=== PATIENT | female | born 1940 | race Caucasian/White ===

== ENCOUNTER → 2016-12-05 | Outpatient (CLI) | payer MEDICARE, OTHER | END | disposition home or self-care (01) | LOC: CFH 08:19 | PROVIDERS: ATTEND Nurse Practitioner Family | DX: Z13.820 Encounter for screening for osteoporosis (principal); M81.0 Age-related osteoporosis without current pathological fracture; M85.80 Other specified disorders of bone density and structure, unspecified site | CPT/HCPCS: 77080 ==

== ENCOUNTER → 2016-12-20 | Outpatient (CLI) | payer OTHER | END | disposition home or self-care (01) | LOC: CFH 10:16 | PROVIDERS: ATTEND Nurse Practitioner Family | DX: R31.9 Hematuria, unspecified (principal); Z90.6 Acquired absence of other parts of urinary tract | CPT/HCPCS: 76770 ==

== ENCOUNTER → 2018-03-27 | Outpatient (CLI) | payer OTHER | END | disposition home or self-care (01) | LOC: CFH 10:41 | PROVIDERS: ATTEND Surgery | DX: I65.23 Occlusion and stenosis of bilateral carotid arteries (principal); I73.9 Peripheral vascular disease, unspecified; Z88.8 Allergy status to other drugs, medicaments and biological substances | CPT/HCPCS: 93880 ==

== ENCOUNTER → 2018-07-10 | Outpatient (CLI) | payer OTHER | END | disposition home or self-care (01) | LOC: CFH 09:43 | PROVIDERS: ATTEND Nurse Practitioner Family | DX: I65.23 Occlusion and stenosis of bilateral carotid arteries (principal) | CPT/HCPCS: 70551; 93880 ==

== ENCOUNTER 2019-03-27 06:54 | Inpatient (IN) | payer MEDICARE ==
[~2019-03-27] VITALS: Ht 160 cm; Wt 45.4 kg
[2019-04-02 15:40] VITALS: BP 101/63
== END 2019-04-02 20:02 | DRG 208 ==
LOC: ED 09:38 → EDIP 09:44 → CCU 11:13 → 5SO 03-29 15:49
PROVIDERS: ADMIT Hospitalist; ATTEND Hospitalist
PROC: 0T9B70Z Drainage of Bladder with Drainage Device, Via Natural or Artificial Opening (ICD-10-PCS; principal; 2019-03-27)
PROC: 5A1935Z Respiratory Ventilation, Less than 24 Consecutive Hours (ICD-10-PCS; 2019-03-27)
PROC: 0BH17EZ Insertion of Endotracheal Airway into Trachea, Via Natural or Artificial Opening (ICD-10-PCS; 2019-03-27)
DX: J96.01 Acute respiratory failure with hypoxia (principal); G92 Toxic encephalopathy; I50.43 Acute on chronic combined systolic (congestive) and diastolic (congestive) heart failure; E87.2 Acidosis; N39.0 Urinary tract infection, site not specified; I42.9 Cardiomyopathy, unspecified; I11.0 Hypertensive heart disease with heart failure; J96.02 Acute respiratory failure with hypercapnia; Z88.8 Allergy status to other drugs, medicaments and biological substances; E03.9 Hypothyroidism, unspecified; E78.5 Hyperlipidemia, unspecified; E87.8 Other disorders of electrolyte and fluid balance, not elsewhere classified; F17.200 Nicotine dependence, unspecified, uncomplicated; G89.4 Chronic pain syndrome; J43.9 Emphysema, unspecified; Z79.891 Long term (current) use of opiate analgesic; Z85.3 Personal history of malignant neoplasm of breast; Z90.710 Acquired absence of both cervix and uterus; E11.42 Type 2 diabetes mellitus with diabetic polyneuropathy
CPT/HCPCS: 31500; 36415; 36600; 70450; 71045; 78452; 80048; 80053; 80061; 80307; 81001; 82010; 82140; 82550; 82803; 82947; 82962; 83036; 83605; 83735; 83930; 84100; 84145; 84439; 84443; 84478; 84484; 85025; 85610; 85730; 86850; 86900; 87040; 87070; 87081; 87086; 87107; 87205; 93005; 93017; 93306; 94002; 94640; 96361; 96365; 96375; 96376; 99291; G0378; J0696; J1650; J2250; J2310; J2543; J2704; J2785; J3370; J7620; J7626; A9502; C9898; J0330; J1815; J1940; J2920; J3475; J7030; J7040; J7050

== ENCOUNTER 2019-09-11 21:10 | Inpatient (IN) | payer MEDICARE ==
[~2019-09-11] VITALS: Ht 160 cm; Wt 58.8 kg
[~2019-09-11 21:10] MED LIST: AMIT50TA PO; ASPI-515 PO; ATOR40TA78 PO; AZIT500T PO; CEFD300C37 PO; CHOL200074 PO; ENOX40SY4 SQ; FLUT1BLS12 INH; FURO20TA3 PO; GABA-826 PO; GABA-827 PO; GUAI600T31 PO; HYDR-3245 PO; HYDR20TA PO; INSU100I13 SQ-INSULIN; LEVO100T5 PO; LIPA1CAP61 PO; LISI-170 PO; LISI5TAB7 PO; METF500T17 PO; METO50TA82 PO; MULT1TAB57 PO; NICO-486 TD; PANT40TA5 PO; POLY17PO5 PO; POTA20TA91 PO; SIMV5TAB14 PO; TAMS-11 PO; TRAM50TA2 PO; [UNRECOGNIZED DRUG - OTHER]
[2019-09-11] MEDS ORDERED: MORPHINE SULFATE 4 MG/ML, 1ML IVPush PRN (21:30)
[2019-09-11] MEDS ORDERED: SODIUM CHLORIDE FLUSH 10ML SYR IVF ONE (21:30)
[2019-09-11] MEDS ORDERED: ONDANSETRON 2MG/ML, 2ML IVPush ONE (21:30)
[2019-09-11] MEDS ORDERED: ONDANSETRON 2MG/ML, 2ML ONE (22:03)
[2019-09-11] MEDS ORDERED: MORPHINE SULFATE 4 MG/ML, 1ML ONE (22:03)
[2019-09-11 22:05] LABS: MEAN CORPUSCULAR HEMOGLOBIN 32.1 pg (27.0-34.8); MEAN CORPUSCULAR HGB CONC 32.1 g/dL (32.4-35.8); MEAN PLATELET VOLUME 7.7 fL (7.4-10.4); PLATELET COUNT 519 x10^3/uL (130-400); RED BLOOD COUNT 4.41 x10^6/uL (3.82-5.3); RED CELL DISTRIBUTION WIDTH 15.1 % (9.6-15.2)
[2019-09-11 22:15] LABS: INTERNATIONAL NORMALIZED RATIO 1.13 (0.93-1.1)
[2019-09-11 22:17] LABS: ALANINE AMINOTRANSFERASE 24 U/L (12-78); ALBUMIN 2.2 g/dL (3.4-5.0); ANION GAP 8 mmol/L (5-15); BASOPHILS # (AUTO) 0.07 x10^3/uL (0-0.1); BASOPHILS % (AUTO) 0 % (0-1); CALCIUM 7.9 mg/dL (8.5-10.1); CHLORIDE 103 mmol/L (98-107); CREATININE 0.56 mg/dL (0.55-1.02); EOSINOPHILS # (AUTO) 0.03 x10^3/uL (0-0.4); EOSINOPHILS % (AUTO) 0 % (1-7); LYMPHOCYTES % (AUTO) 5 % (22-44); MD SCAN; MONOCYTES # (AUTO) 1.11 x10^3/uL (0.2-0.8); MONOCYTES % (AUTO) 6 % (2-9); NEUTROPHILS # (AUTO) 17.93 x10^3/uL (1.8-6.8); NEUTROPHILS % (AUTO) 89 % (42-75)
[2019-09-11 22:20] LABS: ALKALINE PHOSPHATASE 334 U/L (45-117); BILIRUBIN,TOTAL 0.4 mg/dL (0.2-1.0); TOTAL PROTEIN 5.6 g/dL (6.4-8.2)
[2019-09-11] MEDS ORDERED: CEFTRIAXONE PMX 1GM/50ML 50 ML IVPB ONE (22:30)
[2019-09-11] MEDS ORDERED: AZITHROMYCIN 500 MG in SODIUM CHLORIDE 0.9% 250 ML IV ONE (23:00)
--- NOTE | 2019-09-11 23:00 | NUR ---
PT RESTING COMFORTABLY. MONITOR IN PLACE.
[2019-09-11 23:10] LABS: TROPONIN I < 0.015 ng/mL (0.000-0.045)
[2019-09-11] MEDS ORDERED: CEFTRIAXONE PMX 1GM/50ML 50 ML ONE (23:16)
--- NOTE | 2019-09-11 23:30 | NUR ---
UA OBTAINED VIA STRAIGHT CATH. PT'S SON IN . PT TOLERATED WELL.
[2019-09-11 23:56] LABS: MICROSCOPIC INDICATED
[2019-09-12 00:11] LABS: CULTURE INDICATED? YES
[2019-09-12] MEDS ORDERED: ACETAMINOPHEN 325 MG TABLET PO PRN (00:30)
[2019-09-12] MEDS ORDERED: ONDANSETRON ODT 4 MG PO PRN (00:30)
[2019-09-12] MEDS ORDERED: DOCUSATE 100 MG CAPSULE PO PRN (00:30)
[2019-09-12 00:38] VITALS: BP 107/63
[2019-09-12] MEDS: AZITHROMYCIN 500 MG in SODIUM CHLORIDE 0.9% 250 ML IV SCH (03:03)
[2019-09-12] MEDS: HYDROcodone/APAP 5/325 TABLET PO PRN ×3 (06:34→16:51)
[2019-09-12 06:40] VITALS: BP 101/65
[2019-09-12] MEDS: POLYETHYLENE GLYCOL 17 GM PACKET PO SCH (09:09)
[2019-09-12] MEDS: CEFTRIAXONE PMX 1GM/50ML 50 ML IV SCH ×2 (09:09→19:54)
[2019-09-12] MEDS ORDERED: LIDOCAINE 4% CREAM 15GM TUBE TP PRN (11:00)
[2019-09-12 13:28] VITALS: BP 98/54
[2019-09-12] MEDS: ENOXAPARIN 40 MG/0.4 ML SQ SCH (14:10)
[2019-09-12 17:02] VITALS: BP 166/75
[2019-09-12] MEDS: METOPROLOL TARTRATE 50 MG TABLET PO SCH (17:45)
[2019-09-12 19:39] VITALS: BP 88/60
[2019-09-13] VITALS (9 sets, daily range): BP systolic 72–111; BP diastolic 41–74
[2019-09-13] MEDS: HYDROcodone/APAP 5/325 TABLET PO PRN ×2 (00:48→09:34)
[2019-09-13] MEDS: AZITHROMYCIN 500 MG in SODIUM CHLORIDE 0.9% 250 ML IV SCH (01:24)
[2019-09-13 04:48] LABS: BASOPHILS # (AUTO) 0.04 x10^3/uL (0-0.1); BASOPHILS % (AUTO) 0 % (0-1); EOSINOPHILS # (AUTO) 0.03 x10^3/uL (0-0.4); EOSINOPHILS % (AUTO) 0 % (1-7); LYMPHOCYTES # (AUTO) 1.81 x10^3/uL (1-3.4); LYMPHOCYTES % (AUTO) 13 % (22-44); MD NO; MEAN CORPUSCULAR HGB CONC 32.4 g/dL (32.4-35.8); MEAN CORPUSCULAR VOLUME 98.9 fL (80-100); MEAN PLATELET VOLUME 7.9 fL (7.4-10.4); MONOCYTES # (AUTO) 0.95 x10^3/uL (0.2-0.8); MONOCYTES % (AUTO) 7 % (2-9); NEUTROPHILS # (AUTO) 11.63 x10^3/uL (1.8-6.8); NEUTROPHILS % (AUTO) 80 % (42-75); PLATELET COUNT 383 x10^3/uL (130-400); RED BLOOD COUNT 3.92 x10^6/uL (3.82-5.3); RED CELL DISTRIBUTION WIDTH 15.3 % (9.6-15.2)
[2019-09-13 04:51] LABS: ANION GAP 5 mmol/L (5-15); CALCIUM 7.4 mg/dL (8.5-10.1); CHLORIDE 104 mmol/L (98-107); CREATININE 0.48 mg/dL (0.55-1.02)
[2019-09-13] MEDS: METOPROLOL TARTRATE 50 MG TABLET PO SCH ×2 (06:13→17:15)
[2019-09-13] MEDS: CEFTRIAXONE PMX 1GM/50ML 50 ML IV SCH ×2 (08:36→21:20)
[2019-09-13] MEDS: POLYETHYLENE GLYCOL 17 GM PACKET PO SCH (08:58)
[2019-09-13] MEDS ORDERED: MAGNESIUM SULFATE 6 GM in SODIUM CHLORIDE 0.9% 150 ML IV ONE (09:00)
[2019-09-13] MEDS: ENOXAPARIN 40 MG/0.4 ML SQ SCH (12:13)
[2019-09-13] MEDS: INSULIN LISPRO 100 UNITS/ML, PEN SQ-INSULIN SCH ×3 (12:14→20:34)
[2019-09-13] MEDS ORDERED: SODIUM CHLORIDE 0.9%, 250ML IVBOLUS ONE (13:30)
[2019-09-13] MEDS ORDERED: POTASSIUM PHOSPHATE 44 MEQ in SODIUM CHLORIDE 0.9% 500 ML IV ONE (15:00)
[2019-09-13] MEDS: SODIUM CHLORIDE 0.9% 1,000 ML IV SCH (16:34)
[2019-09-13] MEDS ORDERED: METOPROLOL TARTRATE 50 MG TABLET PO SCH (18:00)
[2019-09-14 02:03] VITALS: BP 95/64
[2019-09-14] MEDS: HYDROcodone/APAP 5/325 TABLET PO PRN ×3 (02:47→20:35)
[2019-09-14 05:08] LABS: BASOPHILS # (AUTO) 0.05 x10^3/uL (0-0.1); BASOPHILS % (AUTO) 0 % (0-1); EOSINOPHILS # (AUTO) 0.07 x10^3/uL (0-0.4); EOSINOPHILS % (AUTO) 1 % (1-7); LYMPHOCYTES # (AUTO) 1.63 x10^3/uL (1-3.4); LYMPHOCYTES % (AUTO) 12 % (22-44); MD NO; MEAN CORPUSCULAR HEMOGLOBIN 31.8 pg (27.0-34.8); MEAN CORPUSCULAR HGB CONC 32.2 g/dL (32.4-35.8); MEAN CORPUSCULAR VOLUME 98.5 fL (80-100); MEAN PLATELET VOLUME 8.2 fL (7.4-10.4); MONOCYTES # (AUTO) 1.12 x10^3/uL (0.2-0.8); MONOCYTES % (AUTO) 8 % (2-9); NEUTROPHILS # (AUTO) 10.79 x10^3/uL (1.8-6.8); NEUTROPHILS % (AUTO) 79 % (42-75); PLATELET COUNT 351 x10^3/uL (130-400); RED CELL DISTRIBUTION WIDTH 15.3 % (9.6-15.2)
[2019-09-14 05:18] LABS: ALBUMIN 1.5 g/dL (3.4-5.0); ANION GAP 6 mmol/L (5-15); CALCIUM 7.1 mg/dL (8.5-10.1); CHLORIDE 105 mmol/L (98-107)
[2019-09-14 05:21] LABS: ALANINE AMINOTRANSFERASE 24 U/L (12-78); ALKALINE PHOSPHATASE 243 U/L (45-117); BILIRUBIN,TOTAL 0.2 mg/dL (0.2-1.0); CREATININE 0.33 mg/dL (0.55-1.02); TOTAL PROTEIN 4.4 g/dL (6.4-8.2)
[2019-09-14] MEDS: METOPROLOL TARTRATE 50 MG TABLET PO SCH ×2 (05:48→17:36)
[2019-09-14] MEDS: SODIUM CHLORIDE 0.9% 1,000 ML IV SCH ×2 (05:49→15:35)
[2019-09-14 06:47] VITALS: BP 92/63
[2019-09-14] MEDS: INSULIN LISPRO 100 UNITS/ML, PEN SQ-INSULIN SCH ×4 (08:49→20:34)
[2019-09-14] MEDS: POLYETHYLENE GLYCOL 17 GM PACKET PO SCH (09:06)
[2019-09-14] MEDS: CEFTRIAXONE PMX 1GM/50ML 50 ML IV SCH (09:06)
[2019-09-14] MEDS: ENOXAPARIN 40 MG/0.4 ML SQ SCH (12:18)
[2019-09-14 14:03] VITALS: BP 83/53
[2019-09-14 14:08] VITALS: BP 91/60
[2019-09-14] MEDS: ERTAPENEM 1 GM in SODIUM CHLORIDE 0.9% 50 ML IV SCH (15:32)
[2019-09-14 17:40] VITALS: BP 97/62
[2019-09-14 19:17] VITALS: BP 94/52
[2019-09-15 01:06] VITALS: BP 97/55
[2019-09-15 04:56] LABS: ANION GAP 4 mmol/L (5-15); CALCIUM 7.9 mg/dL (8.5-10.1); CHLORIDE 106 mmol/L (98-107)
[2019-09-15 04:57] LABS: CREATININE 0.34 mg/dL (0.55-1.02); MEAN CORPUSCULAR HGB CONC 32.2 g/dL (32.4-35.8); MEAN CORPUSCULAR VOLUME 99.5 fL (80-100); MEAN PLATELET VOLUME 8.8 fL (7.4-10.4); PLATELET COUNT 391 x10^3/uL (130-400); RED BLOOD COUNT 4.33 x10^6/uL (3.82-5.3); RED CELL DISTRIBUTION WIDTH 15.2 % (9.6-15.2)
[2019-09-15 06:00] LABS: BASOPHILS # (AUTO) 0.07 x10^3/uL (0-0.1); BASOPHILS % (AUTO) 0 % (0-1); EOSINOPHILS # (AUTO) 0.19 x10^3/uL (0-0.4); EOSINOPHILS % (AUTO) 1 % (1-7); LYMPHOCYTES # (AUTO) 1.72 x10^3/uL (1-3.4); LYMPHOCYTES % (AUTO) 11 % (22-44); MD SCAN; MONOCYTES # (AUTO) 1.45 x10^3/uL (0.2-0.8); MONOCYTES % (AUTO) 9 % (2-9); NEUTROPHILS # (AUTO) 12.65 x10^3/uL (1.8-6.8); NEUTROPHILS % (AUTO) 79 % (42-75)
[2019-09-15] MEDS: METOPROLOL TARTRATE 50 MG TABLET PO SCH ×2 (06:04→18:15)
[2019-09-15] MEDS: SODIUM CHLORIDE 0.9% 1,000 ML IV SCH ×2 (06:06→20:44)
[2019-09-15 06:24] VITALS: BP 112/68
[2019-09-15] MEDS: INSULIN LISPRO 100 UNITS/ML, PEN SQ-INSULIN SCH ×4 (07:00→20:44)
[2019-09-15] MEDS: POLYETHYLENE GLYCOL 17 GM PACKET PO SCH (08:39)
[2019-09-15] MEDS ORDERED: METO50TA82 PO (10:37)
[2019-09-15] MEDS ORDERED: ONDA4TAB13 PO (10:37)
[2019-09-15] MEDS ORDERED: GLIP5TAB10 PO (10:37)
[2019-09-15] MEDS ORDERED: TRAM50TA2 PO (10:37)
[2019-09-15] MEDS ORDERED: ERTA1VIA IV (10:37)
[2019-09-15] MEDS ORDERED: HYDR-3622 PO (11:01)
[2019-09-15 12:08] VITALS: BP 103/72
[2019-09-15] MEDS: ENOXAPARIN 40 MG/0.4 ML SQ SCH (12:21)
[2019-09-15] MEDS: ERTAPENEM 1 GM in SODIUM CHLORIDE 0.9% 50 ML IV SCH (15:01)
[2019-09-15] MEDS: HYDROcodone/APAP 5/325 TABLET PO PRN ×2 (15:01→21:51)
[2019-09-15 19:21] VITALS: BP 115/72
[2019-09-16] VITALS (7 sets, daily range): BP systolic 93–120; BP diastolic 57–80
[2019-09-16] MEDS: METOPROLOL TARTRATE 50 MG TABLET PO SCH ×2 (06:12→17:32)
[2019-09-16] MEDS: INSULIN LISPRO 100 UNITS/ML, PEN SQ-INSULIN SCH ×4 (07:00→20:51)
[2019-09-16] MEDS: POLYETHYLENE GLYCOL 17 GM PACKET PO SCH (08:33)
[2019-09-16] MEDS: HYDROcodone/APAP 5/325 TABLET PO PRN ×2 (10:05→20:51)
[2019-09-16] MEDS: ENOXAPARIN 40 MG/0.4 ML SQ SCH (11:10)
[2019-09-16] MEDS: ERTAPENEM 1 GM in SODIUM CHLORIDE 0.9% 50 ML IV SCH (15:33)
[2019-09-16] MEDS: SODIUM CHLORIDE 0.9% 1,000 ML IV SCH (20:50)
[2019-09-17 02:02] VITALS: BP 127/77
[2019-09-17] MEDS: HYDROcodone/APAP 5/325 TABLET PO PRN ×2 (03:42→11:08)
[2019-09-17] MEDS: METOPROLOL TARTRATE 50 MG TABLET PO SCH ×2 (05:37→17:08)
[2019-09-17] MEDS: INSULIN LISPRO 100 UNITS/ML, PEN SQ-INSULIN SCH ×3 (07:00→16:10)
[2019-09-17 08:17] VITALS: BP 115/76
[2019-09-17] MEDS: POLYETHYLENE GLYCOL 17 GM PACKET PO SCH (08:49)
[2019-09-17] MEDS: SODIUM CHLORIDE 0.9% 1,000 ML IV SCH (10:03)
[2019-09-17] MEDS: ENOXAPARIN 40 MG/0.4 ML SQ SCH (11:08)
[2019-09-17 13:14] VITALS: BP 101/71
[2019-09-17] MEDS: ERTAPENEM 1 GM in SODIUM CHLORIDE 0.9% 50 ML IV SCH (15:00)
== END 2019-09-17 18:00 | DRG 871 ==
LOC: ED 23:18 → EDIP 23:47 → 4WST 23:53
PROVIDERS: ADMIT Family Medicine; ATTEND Internal Medicine
PROC: 0T9B70Z Drainage of Bladder with Drainage Device, Via Natural or Artificial Opening (ICD-10-PCS; 2019-09-11)
PROC: 02HV33Z Insertion of Infusion Device into Superior Vena Cava, Percutaneous Approach (ICD-10-PCS; principal; 2019-09-15)
PROC: B5181ZA Fluoroscopy of Superior Vena Cava using Low Osmolar Contrast, Guidance (ICD-10-PCS; 2019-09-15)
PROC: B548ZZA Ultrasonography of Superior Vena Cava, Guidance (ICD-10-PCS; 2019-09-15)
DX: A41.51 Sepsis due to Escherichia coli [E. coli] (principal); S72.144A Nondisplaced intertrochanteric fracture of right femur, initial encounter for closed fracture; E43 Unspecified severe protein-calorie malnutrition; J15.9 Unspecified bacterial pneumonia; S32.601A Unspecified fracture of right ischium, initial encounter for closed fracture; J44.0 Chronic obstructive pulmonary disease with (acute) lower respiratory infection; N39.0 Urinary tract infection, site not specified; I50.42 Chronic combined systolic (congestive) and diastolic (congestive) heart failure; J96.11 Chronic respiratory failure with hypoxia; K86.1 Other chronic pancreatitis; Z16.12 Extended spectrum beta lactamase (ESBL) resistance; Z88.8 Allergy status to other drugs, medicaments and biological substances; Z68.23 Body mass index [BMI] 23.0-23.9, adult; E03.9 Hypothyroidism, unspecified; E11.9 Type 2 diabetes mellitus without complications; E83.42 Hypomagnesemia; F17.210 Nicotine dependence, cigarettes, uncomplicated; G89.4 Chronic pain syndrome; I11.0 Hypertensive heart disease with heart failure; I70.0 Atherosclerosis of aorta; K59.09 Other constipation; M16.11 Unilateral primary osteoarthritis, right hip; W18.11XA Fall from or off toilet without subsequent striking against object, initial encounter; Y93.89 Activity, other specified; Y92.091 Bathroom in other non-institutional residence as the place of occurrence of the external cause; Y99.8 Other external cause status; Z75.1 Person awaiting admission to adequate facility elsewhere; Z82.49 Family history of ischemic heart disease and other diseases of the circulatory system; Z90.710 Acquired absence of both cervix and uterus; Z96.651 Presence of right artificial knee joint; M81.0 Age-related osteoporosis without current pathological fracture
CPT/HCPCS: 36415; 36573; 70450; 71045; 72125; 72192; 73523; 80048; 80053; 81001; 82962; 83036; 83605; 83735; 83880; 84100; 84145; 84484; 85025; 85610; 85730; 87040; 87077; 87086; 87184; 87186; 93005; 96365; 96375; G0378; J0456; J0696; J1335; J1650; J2405; J3475; Q0162; C1751; J1815; J2270; J7030; J7040; J7050

== ENCOUNTER 2019-10-09 20:46 | Inpatient (IN) | payer MEDICARE ==
[~2019-10-09] VITALS: Ht 160 cm; Wt 53.3 kg
[~2019-10-09 20:46] MED LIST changes: +ERTA1VIA IV; +GLIP5TAB10 PO; +HYDR-3622 PO; +ONDA4TAB13 PO
--- NOTE | 2019-10-09 21:13 | NUR ---
[facility] SEALS FROM [facility] FOR [facility] CP TODAY. PT REPORTS CP INCREASES WITH DEEP BREATH. WET COUGH NOTED. CRACKLES IN LLL. PT RECENTLY DX WITH ILEUS, AND PLACED ON LIQUID DIET. PT VERY CACHECTIC. DECUB ULCER NOTED ON SACRUM. WAFFLE MATTRESS PLACED UNDER PT. PILLOW BENEATH LEGS FOR RT HIP COMFORT. PT REHABILITATING RT HIP FX AT FACILITY. PT ALSO NOTED TO HAVE DISTENDED ABDOMEN, WHICH PT IS UNSURE WHETHER IT'S NORMAL FOR HER OR HAS COME ON GRADUALLY AND BEEN LARGELY UNNOTICED. PT AOX3, UNSURE OF DATE. LAB AT BEDSIDE FOR DRAW. SIDE RAIL UP, CALL LIGHT IN REACH.
[2019-10-09 21:18] LABS: MICROSCOPIC NOT IND
[2019-10-09 21:21] LABS: CULTURE INDICATED? NO
[2019-10-09] MEDS ORDERED: SODIUM CHLORIDE 0.9% 1,000ML IVBOLUS ONE ×2 (21:30→23:00)
--- NOTE | 2019-10-09 21:32 | NUR ---
PT TOLERATED MINI CATH WELL. STERILE TECHNIQUE MAINTAINED THROUGH PROCEDURE.
[2019-10-09 21:47] LABS: MEAN CORPUSCULAR HEMOGLOBIN 31.4 pg (27.0-34.8); MEAN CORPUSCULAR HGB CONC 32.8 g/dL (32.4-35.8); MEAN CORPUSCULAR VOLUME 95.7 fL (80-100); MEAN PLATELET VOLUME 8.4 fL (7.4-10.4); PLATELET COUNT 399 x10^3/uL (130-400); RED CELL DISTRIBUTION WIDTH 14.9 % (9.6-15.2)
[2019-10-09 21:58] LABS: INTERNATIONAL NORMALIZED RATIO 1.38 (0.93-1.1); PROTHROMBIN TIME 14.7 Seconds (9.6-11.5)
[2019-10-09 22:00] LABS: ALANINE AMINOTRANSFERASE 19 U/L (12-78); ANION GAP 9 mmol/L (5-15); CALCIUM 8.1 mg/dL (8.5-10.1); CHLORIDE 105 mmol/L (98-107); CREATININE 1.03 mg/dL (0.55-1.02)
[2019-10-09] MEDS ORDERED: PIPERACILLIN/TAZO/PMX 3.375GM 50 ML IV ONE (22:00)
[2019-10-09] MEDS ORDERED: PLEASE ENTER HEIGHT AND WEIGHT MC SCH (22:00)
[2019-10-09 22:02] LABS: BILIRUBIN,TOTAL 0.4 mg/dL (0.2-1.0)
[2019-10-09 22:03] LABS: TOTAL PROTEIN 5.9 g/dL (6.4-8.2)
[2019-10-09 22:05] LABS: ALKALINE PHOSPHATASE 162 U/L (45-117); TROPONIN I < 0.015 ng/mL (0.000-0.045)
[2019-10-09 22:08] LABS: MD YES
[2019-10-09 22:11] LABS: BANDS%(MANUAL) 5 % (0-7); EOS#(MANUAL) 0.24 x10^3/uL (0.0-0.4); EOS% (MANUAL) 2 % (1-7); LYMPH#(MANUAL) 2.52 x10^3/uL (1-3.4); LYMPHS% (MANUAL) 21 % (22-44); MONOS#(MANUAL) 1.56 x10^3/uL (0.3-2.7); MONOS% (MANUAL) 13 % (2-9); SEG#(MANUAL) 7.08 x10^3/uL (1.8-6.8); SEGS% (MANUAL) 59 % (42-75)
[2019-10-09 22:12] LABS: <RBC MORPHOLOGY> NORMAL
[2019-10-09 22:13] LABS: <PLATELET ESTIMATE> ADEQUATE; <PLT MORPHOLOGY> NORMAL PLT MORPH
--- NOTE | 2019-10-09 22:13 | NUR ---
PT ASLEEP IN BED, RESPIRATIONS EVEN AND UNLABORED, SLIGHTLY TACHYPNEIC. NAD NOTED AT THIS TIME. SIDE RAILS UP, CALL LIGHT IN REACH. AWAITING LABS.
[2019-10-09] MEDS ORDERED: PIPERACILLIN/TAZO/PMX 3.375GM 50 ML ONE (22:20)
[2019-10-09] MEDS ORDERED: DEXTROSE 10% 500 ML IV ONE (22:30)
--- NOTE | 2019-10-09 22:31 | NUR ---
CALL TO PHARMACY TO VERIFY USE OF 250ML BAGS FOR DEXTROSE DOSE.
--- NOTE | 2019-10-09 22:40 | NUR ---
ERMD AWARE OF BP.
--- NOTE | 2019-10-09 22:46 | NUR ---
REPORT TO KARELY BURTON.
--- NOTE | 2019-10-09 22:57 | NUR ---
RECEIVED REPORT FROM OTF CALI. ASSUMING CARE AT THIS TIME. PT AT CT.
[2019-10-09] MEDS ORDERED: MIRT15TA PO (22:58)
[2019-10-09] MEDS ORDERED: MAGN400O7 PO (22:58)
[2019-10-09] MEDS ORDERED: POLY17PO5 PO (22:58)
--- NOTE | 2019-10-09 23:15 | NUR ---
REPORT GIVEN TO STEFANI CALI
[2019-10-09] MEDS ORDERED: BISA-49 PO (23:21)
[2019-10-09] MEDS ORDERED: SENN-99 PO (23:21)
[2019-10-09] MEDS ORDERED: ASPI81TA45 PO (23:21)
[2019-10-09] MEDS ORDERED: ESCI5TAB7 PO (23:21)
[2019-10-09] MEDS ORDERED: ROXANOL SL (23:21)
[2019-10-09] MEDS ORDERED: LIPA1CAP2 PO (23:21)
[2019-10-09] MEDS ORDERED: LISI-167 PO (23:21)
[2019-10-09] MEDS ORDERED: GLIP5TAB10 PO (23:21)
[2019-10-09] MEDS ORDERED: ONDA4TAB7 PO (23:21)
--- NOTE | 2019-10-09 23:36 | NUR ---
BS REPORT OF PT FROM KARELY BURTON AND ASSUMING CARE OF PT AT THIS TIME. PT MOVED FROM ER 31 TO TRAUMA 1 AT THIS TIME. PT LINES ACCESSED FOR PATENCY. LINES IN TACT. PT RECEIVING FLUID BOLUS AT THIS TIME. DR DOYLE UPDATED ABOUT PT'S VS, AND PER . PT DOES NOT REQUIRE A TRAUMA ROOM AT THIS TIME. AWAITING FURTHER ORDERS. PT HAS CALL LIGHT WITHIN REACH.
--- NOTE | 2019-10-10 00:10 | NUR ---
PT SLEEPING IN [facility] AT THIS TIME. VSS AND UPDATED IN EMR.
[2019-10-10] MEDS ORDERED: D5%-0.45% NACL 1,000 ML IV ONE (01:30)
[2019-10-10] MEDS ORDERED: AZITHROMYCIN 500 MG in SODIUM CHLORIDE 0.9% 250 ML IV ONE (01:30)
--- NOTE | 2019-10-10 01:44 | NUR ---
ng tube placed and secured in left nare. Dr. Collins notified of need for xray to confirm placement at this time.
--- NOTE | 2019-10-10 02:31 | NUR ---
report of pt to ofe Castillo. all questions answered. tech paged for transport of pt to floor at this time.
[2019-10-10] MEDS ORDERED: D5%-0.45NACL+KCL 20MEQ 1,000 ML IV SCH (03:20)
[2019-10-10 03:30] VITALS: BP 82/55
[2019-10-10] MEDS ORDERED: GLUCAGON 1 MG IM PRN (03:30)
[2019-10-10] MEDS ORDERED: ONDANSETRON 2MG/ML, 2ML IVPush PRN (03:30)
[2019-10-10] MEDS ORDERED: PHARMACOKINETIC MONITORING MC PRN (03:30)
[2019-10-10] MEDS ORDERED: DEXTROSE 4 GM TAB.CHEW PO PRN (03:30)
[2019-10-10] MEDS ORDERED: VANCOMYCIN 800 MG in SODIUM CHLORIDE 0.9% 100 ML IV SCH (03:30)
[2019-10-10] MEDS ORDERED: PHARMACOKINETIC CONSULTATION MC ONE (03:30)
[2019-10-10] MEDS ORDERED: PROMETHAZINE 25 MG/ML, 1ML IM PRN (03:30)
[2019-10-10] MEDS ORDERED: VANCOMYCIN PMX 1GM/200ML 200 ML IV ONE (03:30)
[2019-10-10] MEDS ORDERED: D5%-0.45% NACL 1,000 ML IV SCH (03:30)
[2019-10-10] MEDS ORDERED: VANCOMYCIN PER PHARMACY MC PRN (03:30)
[2019-10-10] MEDS: METOCLOPRAMIDE 5 MG/ML, 2ML IVPush SCH ×4 (04:01→23:22)
[2019-10-10] MEDS: ENOXAPARIN 40 MG/0.4 ML SQ SCH (04:01)
[2019-10-10] MEDS: PIPERACILLIN/TAZO/PMX 3.375GM 50 ML IV SCH ×4 (04:02→23:22)
[2019-10-10] MEDS ORDERED: ALBUTEROL SULFATE 2.5 MG/3 ML NPPB PRN (05:00)
[2019-10-10 05:23] LABS: ANION GAP 8 mmol/L (5-15); CALCIUM 7.3 mg/dL (8.5-10.1); CHLORIDE 108 mmol/L (98-107); CREATININE 0.65 mg/dL (0.55-1.02); MEAN CORPUSCULAR HEMOGLOBIN 31.3 pg (27.0-34.8); MEAN CORPUSCULAR HGB CONC 32.3 g/dL (32.4-35.8); MEAN CORPUSCULAR VOLUME 96.9 fL (80-100); MEAN PLATELET VOLUME 8.4 fL (7.4-10.4); PLATELET COUNT 375 x10^3/uL (130-400); RED BLOOD COUNT 3.81 x10^6/uL (3.82-5.3); RED CELL DISTRIBUTION WIDTH 15.1 % (9.6-15.2)
[2019-10-10 05:29] LABS: TROPONIN I < 0.015 ng/mL (0.000-0.045)
[2019-10-10 05:55] LABS: MD YES
[2019-10-10 05:57] LABS: <PLATELET ESTIMATE> ADEQUATE; <PLT MORPHOLOGY> NORMAL PLT MORPH; <RBC MORPHOLOGY> NORMAL; BAND#(MANUAL) 1.39 x10^3/uL; BANDS%(MANUAL) 13 % (0-7); EOS#(MANUAL) 0.32 x10^3/uL (0.0-0.4); EOS% (MANUAL) 3 % (1-7); LYMPH#(MANUAL) 2.25 x10^3/uL (1-3.4); LYMPHS% (MANUAL) 21 % (22-44); METAMYELOCYTES# (MANUAL) 0.11 x10^3/uL (0-0); METAMYELOCYTES% (MANUAL) 1 % (0-1); MONOS#(MANUAL) 0.96 x10^3/uL (0.3-2.7); MONOS% (MANUAL) 9 % (2-9); SEG#(MANUAL) 5.67 x10^3/uL (1.8-6.8); SEGS% (MANUAL) 53 % (42-75)
[2019-10-10] MEDS: INSULIN LISPRO 100 UNITS/ML, PEN SQ-INSULIN SCH ×4 (07:00→20:04)
[2019-10-10 07:35] VITALS: BP 83/52
[2019-10-10] MEDS: DEXTROSE 50%, 50ML SYRINGE IVPush PRN ×4 (08:18→18:58)
[2019-10-10] MEDS ORDERED: LEVOTHYROXINE 100 MCG INJ IVPush SCH (09:00)
[2019-10-10] MEDS: SODIUM CHLORIDE FLUSH 10ML SYR IVF SCH ×2 (09:00→20:04)
[2019-10-10] MEDS: ALBUTEROL SULFATE 2.5 MG/3 ML NPPB SCH ×3 (09:50→21:23)
[2019-10-10] MEDS: BUDESONIDE 0.5 MG/2 ML INHA NPPB SCH ×2 (09:50→21:23)
[2019-10-10] MEDS: BISACODYL 10 MG SUPP PR SCH (10:55)
[2019-10-10 11:36] LABS: TROPONIN I < 0.015 ng/mL (0.000-0.045)
[2019-10-10 12:22] VITALS: BP 81/53
[2019-10-10] MEDS: VANCOMYCIN 800 MG in SODIUM CHLORIDE 0.9% 100 ML IV SCH (12:55)
[2019-10-10] MEDS ORDERED: SODIUM CHLORIDE 0.9%, 500ML IVBOLUS ONE (13:30)
[2019-10-10] MEDS ORDERED: ACETAMINOPHEN 650 MG SUPP PR PRN (14:00)
[2019-10-10] MEDS: D5%-0.45% NACL 1,000 ML IV SCH (17:28)
[2019-10-10 18:33] LABS: RAPID INFLUENZA A Negative (Negative); RAPID INFLUENZA B Negative (Negative)
[2019-10-10 18:42] LABS: CLOSTRIDIUM DIFFICILE ANTIGEN NEGATIVE; CLOSTRIDIUM DIFFICILE TOXIN NEGATIVE (Negative)
[2019-10-10 19:28] VITALS: BP 79/49
[2019-10-10 19:54] VITALS: BP 84/50
[2019-10-11 00:28] VITALS: BP 82/49
[2019-10-11] MEDS: ALBUTEROL SULFATE 2.5 MG/3 ML NPPB SCH ×4 (02:24→20:40)
[2019-10-11] MEDS: D5%-0.45% NACL 1,000 ML IV SCH ×2 (02:47→12:21)
[2019-10-11] MEDS ORDERED: D5%-0.45% NACL 1,000 ML IV SCH (03:30)
[2019-10-11] MEDS: ENOXAPARIN 40 MG/0.4 ML SQ SCH (03:45)
[2019-10-11 04:29] VITALS: BP 86/55
[2019-10-11] MEDS: DEXTROSE 50%, 50ML SYRINGE IVPush PRN (04:59)
[2019-10-11 05:54] LABS: BASOPHILS # (AUTO) 0.02 x10^3/uL (0-0.1); BASOPHILS % (AUTO) 0 % (0-1); EOSINOPHILS # (AUTO) 0.51 x10^3/uL (0-0.4); EOSINOPHILS % (AUTO) 5 % (1-7); LYMPHOCYTES # (AUTO) 1.61 x10^3/uL (1-3.4); LYMPHOCYTES % (AUTO) 15 % (22-44); MD NO; MEAN CORPUSCULAR HEMOGLOBIN 31.3 pg (27.0-34.8); MEAN CORPUSCULAR HGB CONC 32.3 g/dL (32.4-35.8); MEAN CORPUSCULAR VOLUME 96.9 fL (80-100); MONOCYTES # (AUTO) 1.22 x10^3/uL (0.2-0.8); MONOCYTES % (AUTO) 11 % (2-9); NEUTROPHILS # (AUTO) 7.65 x10^3/uL (1.8-6.8); NEUTROPHILS % (AUTO) 70 % (42-75); PLATELET COUNT 370 x10^3/uL (130-400); RED BLOOD COUNT 4.26 x10^6/uL (3.82-5.3); RED CELL DISTRIBUTION WIDTH 14.8 % (9.6-15.2)
[2019-10-11] MEDS: PIPERACILLIN/TAZO/PMX 3.375GM 50 ML IV SCH ×3 (05:59→22:02)
[2019-10-11] MEDS: METOCLOPRAMIDE 5 MG/ML, 2ML IVPush SCH ×3 (05:59→22:02)
[2019-10-11 06:09] LABS: CHLORIDE 107 mmol/L (98-107)
[2019-10-11 06:26] LABS: ANION GAP 5 mmol/L (5-15); CALCIUM 7.4 mg/dL (8.5-10.1); CREATININE 0.54 mg/dL (0.55-1.02)
[2019-10-11] MEDS: INSULIN LISPRO 100 UNITS/ML, PEN SQ-INSULIN SCH ×4 (07:00→21:00)
[2019-10-11 07:38] VITALS: BP 80/51
[2019-10-11] MEDS ORDERED: MAGNESIUM SULFATE PMX 4GM/100M 100 ML IV ONE (08:30)
[2019-10-11] MEDS ORDERED: POTASSIUM PHOSPHATE 44 MEQ in SODIUM CHLORIDE 0.9% 500 ML IV ONE (08:30)
[2019-10-11] MEDS ORDERED: POTASSIUM CHLORIDE 40 MEQ in SODIUM CHLORIDE 0.9% 500 ML IV ONE (08:30)
[2019-10-11] MEDS: BUDESONIDE 0.5 MG/2 ML INHA NPPB SCH ×2 (08:59→20:40)
[2019-10-11] MEDS ORDERED: LEVOTHYROXINE 100 MCG INJ IVPush SCH (09:00)
[2019-10-11] MEDS ORDERED: BENZOCAINE 20% SPRAY 0.5ML TP PRN (09:00)
[2019-10-11] MEDS: SODIUM CHLORIDE FLUSH 10ML SYR IVF SCH ×2 (09:55→21:00)
[2019-10-11] MEDS: BISACODYL 10 MG SUPP PR SCH (09:56)
[2019-10-11 14:02] VITALS: BP 97/52
[2019-10-11] MEDS: VANCOMYCIN 800 MG in SODIUM CHLORIDE 0.9% 100 ML IV SCH (15:40)
[2019-10-11 18:47] VITALS: BP 87/58
[2019-10-12 00:42] VITALS: BP 94/58
[2019-10-12] MEDS: D5%-0.45% NACL 1,000 ML IV SCH ×3 (02:00→22:11)
[2019-10-12] MEDS: ALBUTEROL SULFATE 2.5 MG/3 ML NPPB SCH ×4 (02:24→21:25)
[2019-10-12] MEDS: PIPERACILLIN/TAZO/PMX 3.375GM 50 ML IV SCH ×3 (04:09→18:07)
[2019-10-12] MEDS: METOCLOPRAMIDE 5 MG/ML, 2ML IVPush SCH ×2 (04:09→10:37)
[2019-10-12] MEDS: ENOXAPARIN 40 MG/0.4 ML SQ SCH (04:09)
[2019-10-12] MEDS: morphine SULFATE 10 MG/ML, 1ML IVPush PRN ×2 (04:41→11:05)
[2019-10-12 06:31] VITALS: BP 101/55
[2019-10-12] MEDS: INSULIN LISPRO 100 UNITS/ML, PEN SQ-INSULIN SCH ×4 (07:00→22:25)
[2019-10-12 07:15] LABS: MEAN CORPUSCULAR HGB CONC 31.9 g/dL (32.4-35.8); MEAN CORPUSCULAR VOLUME 97.3 fL (80-100); PLATELET COUNT 474 x10^3/uL (130-400); RED BLOOD COUNT 4.43 x10^6/uL (3.82-5.3)
[2019-10-12 07:22] LABS: ANION GAP 6 mmol/L (5-15); CALCIUM 7.4 mg/dL (8.5-10.1); CHLORIDE 106 mmol/L (98-107)
[2019-10-12 07:34] LABS: BASOPHILS # (AUTO) 0.07 x10^3/uL (0-0.1); BASOPHILS % (AUTO) 0 % (0-1); EOSINOPHILS # (AUTO) 0.45 x10^3/uL (0-0.4); EOSINOPHILS % (AUTO) 3 % (1-7); LYMPHOCYTES # (AUTO) 2.28 x10^3/uL (1-3.4); LYMPHOCYTES % (AUTO) 14 % (22-44); MD SCAN; MONOCYTES # (AUTO) 1.44 x10^3/uL (0.2-0.8); MONOCYTES % (AUTO) 9 % (2-9); NEUTROPHILS # (AUTO) 11.83 x10^3/uL (1.8-6.8); NEUTROPHILS % (AUTO) 74 % (42-75)
[2019-10-12 08:10] LABS: FREE T4 (FREE THYROXINE) 1.25 ng/dL (0.76-1.46)
[2019-10-12] MEDS: BUDESONIDE 0.5 MG/2 ML INHA NPPB SCH ×2 (08:45→21:25)
[2019-10-12] MEDS: LEVOTHYROXINE 100 MCG INJ IVPush SCH (10:36)
[2019-10-12] MEDS: SODIUM CHLORIDE FLUSH 10ML SYR IVF SCH ×2 (10:36→22:11)
[2019-10-12] MEDS: BISACODYL 10 MG SUPP PR SCH (10:36)
[2019-10-12] MEDS ORDERED: POTASSIUM PHOSPHATE 44 MEQ in SODIUM CHLORIDE 0.9% 500 ML IV ONE (11:30)
[2019-10-12] MEDS ORDERED: MAGNESIUM SULFATE PMX 2GM/50ML 50 ML IV ONE (11:30)
[2019-10-12 12:07] VITALS: BP 95/62
[2019-10-12] MEDS ORDERED: METOCLOPRAMIDE 5 MG/ML, 2ML IVPush PRN (12:30)
[2019-10-12] MEDS ORDERED: VANCOMYCIN 800 MG in SODIUM CHLORIDE 0.9% 100 ML IV SCH (15:00)
[2019-10-12 19:28] VITALS: BP 98/65
[2019-10-12] MEDS: ACETAMINOPHEN 650 MG/20.3 ML UDC PO PRN (22:11)
[2019-10-13] MEDS: PIPERACILLIN/TAZO/PMX 3.375GM 50 ML IV SCH ×4 (00:13→18:20)
[2019-10-13 00:15] VITALS: BP 117/76
[2019-10-13] MEDS: ALBUTEROL SULFATE 2.5 MG/3 ML NPPB SCH ×4 (03:00→20:12)
[2019-10-13] MEDS: ENOXAPARIN 40 MG/0.4 ML SQ SCH (05:35)
[2019-10-13] MEDS: D5%-0.45% NACL 1,000 ML IV SCH ×2 (05:36→17:03)
[2019-10-13] MEDS: BUDESONIDE 0.5 MG/2 ML INHA NPPB SCH ×2 (06:18→20:12)
[2019-10-13 06:23] LABS: ANION GAP 7 mmol/L (5-15); CALCIUM 7.3 mg/dL (8.5-10.1); CHLORIDE 109 mmol/L (98-107); CREATININE 0.33 mg/dL (0.55-1.02); MEAN CORPUSCULAR HEMOGLOBIN 31.2 pg (27.0-34.8); MEAN CORPUSCULAR HGB CONC 32.2 g/dL (32.4-35.8); MEAN CORPUSCULAR VOLUME 96.8 fL (80-100); MEAN PLATELET VOLUME 7.9 fL (7.4-10.4); PLATELET COUNT 478 x10^3/uL (130-400); RED BLOOD COUNT 4.29 x10^6/uL (3.82-5.3); RED CELL DISTRIBUTION WIDTH 14.3 % (9.6-15.2)
[2019-10-13 06:48] LABS: BASOPHILS # (AUTO) 0.02 x10^3/uL (0-0.1); BASOPHILS % (AUTO) 0 % (0-1); EOSINOPHILS # (AUTO) 0.47 x10^3/uL (0-0.4); EOSINOPHILS % (AUTO) 3 % (1-7); LYMPHOCYTES # (AUTO) 2.86 x10^3/uL (1-3.4); LYMPHOCYTES % (AUTO) 21 % (22-44); MD SCAN; MONOCYTES # (AUTO) 1.47 x10^3/uL (0.2-0.8); MONOCYTES % (AUTO) 11 % (2-9); NEUTROPHILS # (AUTO) 8.75 x10^3/uL (1.8-6.8); NEUTROPHILS % (AUTO) 65 % (42-75)
[2019-10-13 06:59] VITALS: BP 117/71
[2019-10-13] MEDS: INSULIN LISPRO 100 UNITS/ML, PEN SQ-INSULIN SCH ×4 (07:00→21:13)
[2019-10-13] MEDS ORDERED: MAGNESIUM SULFATE PMX 4GM/100M 100 ML IV ONE (08:00)
[2019-10-13] MEDS: BISACODYL 10 MG SUPP PR SCH (09:00)
[2019-10-13] MEDS: NEUTRA PHOS K 250 MG TABLET PO SCH ×3 (09:25→21:12)
[2019-10-13] MEDS: SODIUM CHLORIDE FLUSH 10ML SYR IVF SCH ×2 (09:25→21:13)
[2019-10-13] MEDS: LEVOTHYROXINE 100 MCG INJ IVPush SCH (09:25)
[2019-10-13] MEDS: ACETAMINOPHEN 650 MG/20.3 ML UDC PO PRN (11:35)
[2019-10-13 12:20] VITALS: BP 125/79
[2019-10-13] MEDS ORDERED: PANCRELIPASE 5000 CAPSULE.DR PO SCH (16:00)
[2019-10-13] MEDS: PANCRELIPASE 5000 CAPSULE.DR PO SCH (16:32)
[2019-10-13] MEDS: VANCOMYCIN PMX 1GM/200ML 200 ML IVPB SCH (17:08)
[2019-10-13 20:00] VITALS: BP 98/56
[2019-10-14] MEDS: PIPERACILLIN/TAZO/PMX 3.375GM 50 ML IV SCH ×4 (00:53→21:55)
[2019-10-14 00:57] VITALS: BP 102/58
[2019-10-14] MEDS: ALBUTEROL SULFATE 2.5 MG/3 ML NPPB SCH ×4 (02:36→20:33)
[2019-10-14] MEDS: D5%-0.45% NACL 1,000 ML IV SCH ×2 (03:00→17:11)
[2019-10-14] MEDS: ENOXAPARIN 40 MG/0.4 ML SQ SCH (04:59)
[2019-10-14 06:13] LABS: MEAN CORPUSCULAR HEMOGLOBIN 31.7 pg (27.0-34.8); MEAN CORPUSCULAR HGB CONC 32.9 g/dL (32.4-35.8); MEAN CORPUSCULAR VOLUME 96.5 fL (80-100); PLATELET COUNT 424 x10^3/uL (130-400); RED BLOOD COUNT 4.36 x10^6/uL (3.82-5.3)
[2019-10-14 06:15] LABS: ANION GAP 8 mmol/L (5-15); CALCIUM 7.4 mg/dL (8.5-10.1); CHLORIDE 104 mmol/L (98-107)
[2019-10-14 06:26] LABS: CREATININE 0.39 mg/dL (0.55-1.02)
[2019-10-14 06:34] LABS: MD YES
[2019-10-14 06:36] LABS: BAND#(MANUAL) 0.34 x10^3/uL; BANDS%(MANUAL) 2 % (0-7); EOS#(MANUAL) 0.34 x10^3/uL (0.0-0.4); EOS% (MANUAL) 2 % (1-7); LYMPH#(MANUAL) 2.91 x10^3/uL (1-3.4); LYMPHS% (MANUAL) 17 % (22-44); METAMYELOCYTES# (MANUAL) 0.17 x10^3/uL (0-0); METAMYELOCYTES% (MANUAL) 1 % (0-1); MONOS#(MANUAL) 0.86 x10^3/uL (0.3-2.7); MONOS% (MANUAL) 5 % (2-9); SEG#(MANUAL) 12.48 x10^3/uL (1.8-6.8); SEGS% (MANUAL) 73 % (42-75)
[2019-10-14 06:37] LABS: <PLATELET ESTIMATE> INCREASED; <PLT MORPHOLOGY> NORMAL PLT MORPH; <RBC MORPHOLOGY> NORMAL
[2019-10-14 06:38] LABS: TOXIC GRAN 1+
[2019-10-14 07:26] VITALS: BP 113/55
[2019-10-14] MEDS ORDERED: MAGNESIUM SULFATE PMX 4GM/100M 100 ML IV ONE (07:30)
[2019-10-14] MEDS: BUDESONIDE 0.5 MG/2 ML INHA NPPB SCH ×2 (08:23→20:33)
[2019-10-14] MEDS: INSULIN LISPRO 100 UNITS/ML, PEN SQ-INSULIN SCH ×4 (09:23→20:59)
[2019-10-14] MEDS: PANCRELIPASE 5000 CAPSULE.DR PO SCH ×3 (09:33→17:11)
[2019-10-14] MEDS: BISACODYL 10 MG SUPP PR SCH (09:34)
[2019-10-14] MEDS: LEVOTHYROXINE 100 MCG INJ IVPush SCH (09:34)
[2019-10-14] MEDS: SODIUM CHLORIDE FLUSH 10ML SYR IVF SCH ×2 (09:34→21:00)
[2019-10-14] MEDS: VANCOMYCIN PMX 1GM/200ML 200 ML IVPB SCH (11:33)
[2019-10-14 12:45] VITALS: BP 110/69
[2019-10-14 12:49] VITALS: BP 128/77
[2019-10-14 19:42] VITALS: BP 123/74
[2019-10-15 01:32] VITALS: BP 118/68
[2019-10-15] MEDS: ALBUTEROL SULFATE 2.5 MG/3 ML NPPB SCH ×4 (02:36→21:30)
[2019-10-15] MEDS: LEVOTHYROXINE 112 MCG TABLET PO SCH (06:00)
[2019-10-15] MEDS: ENOXAPARIN 40 MG/0.4 ML SQ SCH (06:00)
[2019-10-15 06:54] VITALS: BP 115/73
[2019-10-15] MEDS: PANCRELIPASE 5000 CAPSULE.DR PO SCH ×3 (07:00→16:10)
[2019-10-15] MEDS: BUDESONIDE 0.5 MG/2 ML INHA NPPB SCH ×2 (07:05→21:30)
[2019-10-15 07:12] LABS: BASOPHILS # (AUTO) 0.03 x10^3/uL (0-0.1); BASOPHILS % (AUTO) 0 % (0-1); EOSINOPHILS # (AUTO) 0.64 x10^3/uL (0-0.4); EOSINOPHILS % (AUTO) 4 % (1-7); LYMPHOCYTES # (AUTO) 2.38 x10^3/uL (1-3.4); LYMPHOCYTES % (AUTO) 16 % (22-44); MD NO; MEAN CORPUSCULAR HEMOGLOBIN 31.1 pg (27.0-34.8); MEAN CORPUSCULAR HGB CONC 32.1 g/dL (32.4-35.8); MEAN CORPUSCULAR VOLUME 96.8 fL (80-100); MEAN PLATELET VOLUME 7.7 fL (7.4-10.4); MONOCYTES # (AUTO) 1.29 x10^3/uL (0.2-0.8); MONOCYTES % (AUTO) 9 % (2-9); NEUTROPHILS # (AUTO) 10.59 x10^3/uL (1.8-6.8); NEUTROPHILS % (AUTO) 71 % (42-75); PLATELET COUNT 481 x10^3/uL (130-400); RED BLOOD COUNT 4.26 x10^6/uL (3.82-5.3)
[2019-10-15 07:22] LABS: ALBUMIN 1.6 g/dL (3.4-5.0); ANION GAP 8 mmol/L (5-15); CALCIUM 7.4 mg/dL (8.5-10.1); CHLORIDE 106 mmol/L (98-107)
[2019-10-15 07:26] LABS: ALANINE AMINOTRANSFERASE 27 U/L (12-78); ALKALINE PHOSPHATASE 149 U/L (45-117); BILIRUBIN,TOTAL 0.3 mg/dL (0.2-1.0); CREATININE 0.38 mg/dL (0.55-1.02); TOTAL PROTEIN 4.8 g/dL (6.4-8.2)
[2019-10-15] MEDS: PIPERACILLIN/TAZO/PMX 3.375GM 50 ML IV SCH ×3 (07:57→20:36)
[2019-10-15] MEDS: SODIUM CHLORIDE FLUSH 10ML SYR IVF SCH ×2 (07:58→20:36)
[2019-10-15] MEDS: INSULIN LISPRO 100 UNITS/ML, PEN SQ-INSULIN SCH ×4 (08:09→20:36)
[2019-10-15] MEDS: VANCOMYCIN PMX 1GM/200ML 200 ML IVPB SCH (10:31)
[2019-10-15] MEDS: D5%-0.45% NACL 1,000 ML IV SCH (10:31)
[2019-10-15] MEDS: BISACODYL 10 MG SUPP PR SCH (10:35)
[2019-10-15 12:45] VITALS: BP 136/82
[2019-10-15 19:30] VITALS: BP 122/74
[2019-10-16 00:31] VITALS: BP 123/75
[2019-10-16] MEDS: ALBUTEROL SULFATE 2.5 MG/3 ML NPPB SCH ×4 (02:20→19:58)
[2019-10-16] MEDS: PIPERACILLIN/TAZO/PMX 3.375GM 50 ML IV SCH ×4 (04:21→21:36)
[2019-10-16] MEDS: ENOXAPARIN 40 MG/0.4 ML SQ SCH (05:59)
[2019-10-16] MEDS: LEVOTHYROXINE 112 MCG TABLET PO SCH (05:59)
[2019-10-16] MEDS: BUDESONIDE 0.5 MG/2 ML INHA NPPB SCH ×2 (06:55→19:58)
[2019-10-16] MEDS: INSULIN LISPRO 100 UNITS/ML, PEN SQ-INSULIN SCH ×4 (07:00→21:00)
[2019-10-16 08:12] VITALS: BP 111/73
[2019-10-16] MEDS: BISACODYL 10 MG SUPP PR SCH (09:00)
[2019-10-16] MEDS: PANCRELIPASE 5000 CAPSULE.DR PO SCH ×3 (09:15→16:45)
[2019-10-16] MEDS: SODIUM CHLORIDE FLUSH 10ML SYR IVF SCH ×2 (09:16→21:05)
[2019-10-16 09:53] LABS: ALANINE AMINOTRANSFERASE 29 U/L (12-78); ALBUMIN 1.6 g/dL (3.4-5.0); ANION GAP 8 mmol/L (5-15); CALCIUM 7.4 mg/dL (8.5-10.1); CHLORIDE 109 mmol/L (98-107); CREATININE 0.56 mg/dL (0.55-1.02)
[2019-10-16 09:56] LABS: ALKALINE PHOSPHATASE 156 U/L (45-117); BILIRUBIN,TOTAL 0.2 mg/dL (0.2-1.0); TOTAL PROTEIN 4.6 g/dL (6.4-8.2)
[2019-10-16 10:05] LABS: MEAN CORPUSCULAR HGB CONC 31.9 g/dL (32.4-35.8); MEAN CORPUSCULAR VOLUME 97.2 fL (80-100); MEAN PLATELET VOLUME 7.4 fL (7.4-10.4); PLATELET COUNT 598 x10^3/uL (130-400); RED BLOOD COUNT 4.45 x10^6/uL (3.82-5.3); RED CELL DISTRIBUTION WIDTH 14.7 % (9.6-15.2)
[2019-10-16 10:07] LABS: BASOPHILS # (AUTO) 0.06 x10^3/uL (0-0.1); BASOPHILS % (AUTO) 0 % (0-1); EOSINOPHILS # (AUTO) 0.41 x10^3/uL (0-0.4); EOSINOPHILS % (AUTO) 3 % (1-7); LYMPHOCYTES # (AUTO) 2.05 x10^3/uL (1-3.4); LYMPHOCYTES % (AUTO) 14 % (22-44); MD SCAN; MONOCYTES # (AUTO) 1.23 x10^3/uL (0.2-0.8); MONOCYTES % (AUTO) 8 % (2-9); NEUTROPHILS # (AUTO) 11.09 x10^3/uL (1.8-6.8); NEUTROPHILS % (AUTO) 75 % (42-75)
[2019-10-16] MEDS ORDERED: POTASSIUM CHLORIDE 40 MEQ in D5%-0.45% NACL 1,000 ML IV SCH (10:30)
[2019-10-16] MEDS ORDERED: D5%-0.45% NACL 1,000 ML IV SCH (10:30)
[2019-10-16] MEDS ORDERED: POTASSIUM CHLORIDE 20 MEQ TAB.ER.PRT PO ONE (11:30)
[2019-10-16] MEDS ORDERED: POTASSIUM CHLORIDE 40 MEQ in SODIUM CHLORIDE 0.9% 500 ML IV ONE (11:30)
[2019-10-16] MEDS ORDERED: MAGNESIUM SULFATE PMX 2GM/50ML 50 ML IV ONE (11:30)
[2019-10-16 14:43] VITALS: BP 134/78
[2019-10-16] MEDS ORDERED: LIDOCAINE 1%, 10ML ONE (16:38)
[2019-10-16 18:48] VITALS: BP 124/70
[2019-10-17 01:41] VITALS: BP 115/75
[2019-10-17] MEDS: ALBUTEROL SULFATE 2.5 MG/3 ML NPPB SCH ×3 (03:00→15:00)
[2019-10-17] MEDS: PIPERACILLIN/TAZO/PMX 3.375GM 50 ML IV SCH ×3 (03:43→16:35)
[2019-10-17] MEDS: ENOXAPARIN 40 MG/0.4 ML SQ SCH (05:17)
[2019-10-17] MEDS: LEVOTHYROXINE 112 MCG TABLET PO SCH (05:17)
[2019-10-17 06:43] VITALS: BP 119/65
[2019-10-17 06:43] LABS: ANION GAP 5 mmol/L (5-15); CALCIUM 7.3 mg/dL (8.5-10.1); CHLORIDE 109 mmol/L (98-107)
[2019-10-17] MEDS: INSULIN LISPRO 100 UNITS/ML, PEN SQ-INSULIN SCH ×3 (07:00→16:00)
[2019-10-17] MEDS: SODIUM CHLORIDE FLUSH 10ML SYR IVF SCH (08:18)
[2019-10-17] MEDS: PANCRELIPASE 5000 CAPSULE.DR PO SCH ×3 (08:18→16:35)
[2019-10-17] MEDS: BUDESONIDE 0.5 MG/2 ML INHA NPPB SCH (09:00)
[2019-10-17] MEDS: BISACODYL 10 MG SUPP PR SCH (09:47)
[2019-10-17 12:50] VITALS: BP_SYST 135; BP_SYST 160; BP_DIAS 78; BP_DIAS 97
[2019-10-17] MEDS ORDERED: LEVO112T2 PO (12:59)
[2019-10-17] MEDS ORDERED: ONDA4VIA60 PO (12:59)
[2019-10-17] MEDS ORDERED: ENOX40SY4 SQ (12:59)
[2019-10-17] MEDS ORDERED: BISA10SU4 PR (12:59)
[2019-10-17] MEDS ORDERED: ALBU2.5V NPPB (12:59)
[2019-10-17] MEDS ORDERED: INSU100I11 SQ-INSULIN (12:59)
[2019-10-17] MEDS ORDERED: PINK LADY ENEMA 490 ML BOTTLE PR ONE (14:00)
[2019-10-17 18:29] VITALS: BP 106/67
== END 2019-10-17 19:40 | DRG 871 ==
LOC: ED 23:59 → EDIP 10-10 01:26 → 4EST 10-10 02:50
PROVIDERS: ADMIT Internal Medicine; ATTEND Hospitalist
PROC: 0T9B70Z Drainage of Bladder with Drainage Device, Via Natural or Artificial Opening (ICD-10-PCS; 2019-10-10)
PROC: 0D9670Z Drainage of Stomach with Drainage Device, Via Natural or Artificial Opening (ICD-10-PCS; 2019-10-10)
PROC: 0WJ8XZZ Inspection of Chest Wall, External Approach (ICD-10-PCS; principal; 2019-10-16)
DX: A41.9 Sepsis, unspecified organism (principal); J18.9 Pneumonia, unspecified organism; K56.7 Ileus, unspecified; K86.1 Other chronic pancreatitis; J44.0 Chronic obstructive pulmonary disease with (acute) lower respiratory infection; I50.42 Chronic combined systolic (congestive) and diastolic (congestive) heart failure; J96.11 Chronic respiratory failure with hypoxia; M48.54XA Collapsed vertebra, not elsewhere classified, thoracic region, initial encounter for fracture; E03.9 Hypothyroidism, unspecified; E11.649 Type 2 diabetes mellitus with hypoglycemia without coma; E78.5 Hyperlipidemia, unspecified; E83.39 Other disorders of phosphorus metabolism; E83.42 Hypomagnesemia; E86.0 Dehydration; E86.1 Hypovolemia; E87.6 Hypokalemia; I11.0 Hypertensive heart disease with heart failure; K21.9 Gastro-esophageal reflux disease without esophagitis; K40.90 Unilateral inguinal hernia, without obstruction or gangrene, not specified as recurrent; K44.9 Diaphragmatic hernia without obstruction or gangrene; K80.20 Calculus of gallbladder without cholecystitis without obstruction; M19.90 Unspecified osteoarthritis, unspecified site; Y95 Nosocomial condition; Z90.710 Acquired absence of both cervix and uterus; Z96.651 Presence of right artificial knee joint; Z98.1 Arthrodesis status; Z99.81 Dependence on supplemental oxygen; Z88.8 Allergy status to other drugs, medicaments and biological substances
CPT/HCPCS: 32555; 36415; 71045; 71250; 74018; 74176; 74250; 80048; 80053; 80202; 81003; 82962; 83036; 83605; 83735; 84100; 84132; 84145; 84439; 84443; 84481; 84484; 85025; 85610; 85730; 87040; 87046; 87324; 87400; 87427; 93005; 94640; 96365; 96375; 99291; G0378; J0456; J1650; J2405; J2543; J3370; J3480; J7613; J7626; J1815; J2270; J2765; J3475; J7030; J7040; J7050

== ENCOUNTER 2020-01-08 13:55 | Emergency (ER) | payer MEDICARE ==
[~2020-01-08] VITALS: Ht 160 cm; Wt 44.0 kg
[~2020-01-08 13:55] MED LIST changes: +ALBU2.5V NPPB; +ASPI81TA45 PO; +BISA-49 PO; +BISA10SU4 PR; +ESCI5TAB7 PO; +INSU100I11 SQ-INSULIN; +LEVO112T2 PO; +LIPA1CAP2 PO; +LISI-167 PO; +MAGN400O7 PO; +MIRT15TA PO; +ONDA4TAB7 PO; +ONDA4VIA60 PO; +ROXANOL SL; +SENN-99 PO
[2020-01-08] MEDS ORDERED: SODIUM CHLORIDE FLUSH 10ML SYR IVF ONE (14:30)
[2020-01-08 14:51] LABS: BASOPHILS # (AUTO) 0.09 x10^3/uL (0-0.1); BASOPHILS % (AUTO) 1 % (0-1); EOSINOPHILS # (AUTO) 0.57 x10^3/uL (0-0.4); EOSINOPHILS % (AUTO) 7 % (1-7); LYMPHOCYTES # (AUTO) 2.83 x10^3/uL (1-3.4); LYMPHOCYTES % (AUTO) 32 % (22-44); MD NO; MEAN CORPUSCULAR HEMOGLOBIN 29.9 pg (27.0-34.8); MEAN CORPUSCULAR HGB CONC 31.5 g/dL (32.4-35.8); MEAN CORPUSCULAR VOLUME 94.9 fL (80-100); MEAN PLATELET VOLUME 8.5 fL (7.4-10.4); MONOCYTES # (AUTO) 0.87 x10^3/uL (0.2-0.8); MONOCYTES % (AUTO) 10 % (2-9); NEUTROPHILS # (AUTO) 4.52 x10^3/uL (1.8-6.8); NEUTROPHILS % (AUTO) 51 % (42-75); PLATELET COUNT 430 x10^3/uL (130-400); RED BLOOD COUNT 3.88 x10^6/uL (3.82-5.3); RED CELL DISTRIBUTION WIDTH 15.1 % (9.6-15.2)
--- NOTE | 2020-01-08 14:53 | NUR ---
BREAK RN: COVID SAMPLE COLLECTED AND WALKED TO LAB
[2020-01-08 15:01] LABS: ALBUMIN 2.7 g/dL (3.4-5.0); ANION GAP 6 mmol/L (5-15); CALCIUM 8.3 mg/dL (8.5-10.1); CHLORIDE 107 mmol/L (98-107)
[2020-01-08 15:06] LABS: ALANINE AMINOTRANSFERASE 26 U/L (12-78); ALKALINE PHOSPHATASE 131 U/L (45-117); BILIRUBIN,TOTAL 0.4 mg/dL (0.2-1.0); CREATININE 0.52 mg/dL (0.55-1.02); TROPONIN I < 0.015 ng/mL (0.000-0.045)
[2020-01-08 15:30] VITALS: BP 143/62
--- NOTE | 2020-01-08 15:40 | NUR ---
[employer] OX DIPPING INTO 80S WHEN PT SLEEPING. OXYGEN PLACED AT 2LITERS VIA NC. PT STATES SHE USES OXYGEN AT 2.5 LITERS PER NC AT NIGHT. ALL RESULTS BACK, PT FOR RECHECK.
== END 2020-01-08 16:46 | disposition home or self-care (01) ==
LOC: ED 15:46
DX: R06.00 Dyspnea, unspecified (principal); R05 Cough; Z20.828 Contact with and (suspected) exposure to other viral communicable diseases; R53.1 Weakness; R94.31 Abnormal electrocardiogram [ECG] [EKG]; I11.9 Hypertensive heart disease without heart failure; E11.9 Type 2 diabetes mellitus without complications; Z90.710 Acquired absence of both cervix and uterus; Z88.1 Allergy status to other antibiotic agents
CPT/HCPCS: 36415; 71045; 80053; 83880; 84145; 84484; 85025; 93005; 99285; U0001

== ENCOUNTER 2020-09-24 10:00 | Emergency (ER) | payer MEDICARE ==
[~2020-09-24] VITALS: Ht 154.9 cm; Wt 46.0 kg
[~2020-09-24 10:00] MED LIST changes: -ASPI-515 PO; +ASPI-963 PO; -HYDR-3245 PO; +HYDR1TAB53 PO; +MIRT-37 PO; -MIRT15TA PO; -PANT40TA5 PO; +PANT40TA6 PO
--- NOTE | 2020-09-24 10:08 | NUR ---
PATIENT BIB EMS WITH CHIEF C/O HYPOXIA. PER EMS PATIENT WAS AT PCP APPOINTMENT THIS MORNING DUE TO RECENT WEIGHT LOSS AND COUGH. RA SATURATION AT PCP OFFICE 88%. PATIENT DENIES ANY OTHER SYMPTOMS, NO OTHER COMPLAINTS. VITALS STABLE EN ROUTE PER EMS. BLOOD SUGAR EN ROUTE 298. PATIENT REPORTS PRODUCTIVE COUGH WITH WHITE AND YELLOW SPUTUM. PATIENT ON 2 LPM NC, OXYGEN SAT 97%, OTHER VSS, SIDE RAILS UP X2, CALL LIGHT WITHIN REACH.
--- NOTE | 2020-09-24 10:09 | NUR ---
ERMD AT BEDSIDE FOR EVALUATION.
[2020-09-24] MEDS ORDERED: ALBUTEROL/IPRATROPIUM 2.5MG/0.5MG, 3 ML NPPB SCH (10:30)
[2020-09-24] MEDS ORDERED: ALBUTEROL/IPRATROPIUM 2.5MG/0.5MG, 3 ML ONE (10:32)
--- NOTE | 2020-09-24 10:35 | NUR ---
ADMIN NEB. PT ON ROOM AIR.
--- NOTE | 2020-09-24 10:37 | NUR ---
PT IN BED. ADMIN NEB. O2 SAT AT 98%. NC OFF PT ON ROOM AIR
--- NOTE | 2020-09-24 11:12 | NUR ---
PT UP TO BSC WITH NO ASSISTANCE. ON ROOM AIR 92% O2 SAT
[2020-09-24 11:17] LABS: ALBUMIN 3.5 g/dL (3.4-5.0); ANION GAP 7 mmol/L (5-15); BASOPHILS % (AUTO) 1 % (0-1); CHLORIDE 102 mmol/L (98-107); CREATININE 0.54 mg/dL (0.55-1.02); EOSINOPHILS % (AUTO) 6 % (1-7); LYMPHOCYTES % (AUTO) 26 % (22-44); MEAN CORPUSCULAR HEMOGLOBIN 27.3 pg (27.0-34.8); MEAN CORPUSCULAR HGB CONC 31.9 g/dL (32.4-35.8); MEAN PLATELET VOLUME 8.5 fL (7.4-10.4); MONOCYTES % (AUTO) 8 % (2-9); NEUTROPHILS % (AUTO) 59 % (42-75); PLATELET COUNT 299 x10^3/uL (130-400); RED BLOOD COUNT 5.08 x10^6/uL (3.82-5.3); RED CELL DISTRIBUTION WIDTH 17.4 % (9.6-15.2)
[2020-09-24 11:20] LABS: MD NO
[2020-09-24] MEDS ORDERED: ALBUTEROL-IPRATROPIUM MDI INH INH PRN (11:30)
--- NOTE | 2020-09-24 12:03 | NUR ---
PT IN BED GIVEN MDI.
--- NOTE | 2020-09-24 13:00 | NUR ---
son at bedside.
[2020-09-24 13:11] VITALS: BP 146/48
--- NOTE | 2020-09-24 13:40 | NUR ---
pt walked out self using walker with a steady gait with son. discuessed if s&s worsen return to the er.
== END 2020-09-24 13:45 | disposition home or self-care (01) ==
LOC: ED 11:59
DX: J44.1 Chronic obstructive pulmonary disease with (acute) exacerbation (principal); R07.89 Other chest pain; R06.02 Shortness of breath; R94.31 Abnormal electrocardiogram [ECG] [EKG]; R42 Dizziness and giddiness; R11.2 Nausea with vomiting, unspecified; R51.9 Headache, unspecified; I10 Essential (primary) hypertension; F17.200 Nicotine dependence, unspecified, uncomplicated
CPT/HCPCS: 36415; 71045; 80048; 82040; 83605; 83880; 85025; 93005; 99285; J7512

== ENCOUNTER → 2020-09-29 | Outpatient (CLI) | payer MEDICARE | END | disposition home or self-care (01) | LOC: CFH 10:33 | PROVIDERS: ATTEND Registered Nurse | DX: R91.8 Other nonspecific abnormal finding of lung field (principal); J98.4 Other disorders of lung; J44.9 Chronic obstructive pulmonary disease, unspecified; J96.11 Chronic respiratory failure with hypoxia; K86.89 Other specified diseases of pancreas; K86.1 Other chronic pancreatitis; K59.00 Constipation, unspecified; Z87.891 Personal history of nicotine dependence | CPT/HCPCS: 71250 ==